=== PATIENT | male | born 1960 | race Caucasian/White ===

== ENCOUNTER 2017-02-11 12:38 | Emergency (ER) | payer OTHER ==
[~2017-02-11] VITALS: Ht 172.7 cm; Wt 88.0 kg
[2017-02-11] MEDS ORDERED: LORazepam 0.5MG TABLET PO ONE (13:30)
[2017-02-11 13:47] LABS: ASPARTATE AMINO TRANSFERASE 13 U/L (15-37); BLOOD UREA NITROGEN 14 mg/dL (7-18)
[2017-02-11 14:32] VITALS: BP 139/96
== END 2017-02-11 15:10 | disposition home or self-care (01) ==
LOC: ED 14:45
DX: R10.33 Periumbilical pain (principal); R19.7 Diarrhea, unspecified; R10.30 Lower abdominal pain, unspecified
CPT/HCPCS: 36415; 74020; 80053; 81003; 83690; 85025; 99285

== ENCOUNTER 2020-06-06 19:28 | Emergency (ER) | payer OTHER ==
[~2020-06-06] VITALS: Ht 172.7 cm; Wt 87.7 kg
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
[2020-06-06] MEDS ORDERED: METHOCARBAMOL 750 MG TABLET PO ONE (20:30)
[2020-06-06] MEDS ORDERED: METHOCARBAMOL 750 MG TABLET ONE (20:33)
--- NOTE | 2020-06-06 21:05 | NUR ---
PT RESTING IN [place] [facility], NO NEEDS AT THIS TIME. NAD NOTED, WILL CONTINUE TO MONITOR.
[2020-06-06 21:28] VITALS: BP 108/59
--- NOTE | 2020-06-06 21:50 | NUR ---
REPORT GIVEN TO CLAUDINE LIANG.
--- NOTE | 2020-06-06 22:27 | NUR ---
Patient given discharge instructions and prescription and they have confirmed that they understand the instructions. Work note given to patient. Patient stable and ambulatory with steady gait from ED.
== END 2020-06-06 22:29 | disposition home or self-care (01) ==
LOC: ED 20:41
DX: S16.1XXA Strain of muscle, fascia and tendon at neck level, initial encounter (principal); S09.90XA Unspecified injury of head, initial encounter; M62.830 Muscle spasm of back; I10 Essential (primary) hypertension; V49.09XA Driver injured in collision with other motor vehicles in nontraffic accident, initial encounter; Y93.89 Activity, other specified; Y92.410 Unspecified street and highway as the place of occurrence of the external cause; Y99.8 Other external cause status
CPT/HCPCS: 70450; 72125; 99285